=== PATIENT | female | born 1945 | race Caucasian/White ===

== ENCOUNTER 2016-08-09 08:13 | Outpatient (CLI) | payer OTHER | END 2016-08-09 18:07 | disposition home or self-care (01) | LOC: SMA 08:13 | PROVIDERS: ATTEND Family Medicine | DX: Z12.31 Encounter for screening mammogram for malignant neoplasm of breast (principal) | CPT/HCPCS: 77067; G0202 ==

== ENCOUNTER 2017-08-11 09:48 | Outpatient (CLI) | payer MEDICARE, OTHER | END 2017-08-11 18:39 | disposition home or self-care (01) | LOC: SMA 09:48 | DX: Z12.31 Encounter for screening mammogram for malignant neoplasm of breast (principal) | CPT/HCPCS: 77067 ==

== ENCOUNTER 2018-08-15 09:39 | Outpatient (CLI) | payer OTHER | END 2018-08-15 20:29 | disposition home or self-care (01) | LOC: SMA 09:39 | PROVIDERS: ATTEND Family Medicine | DX: Z12.31 Encounter for screening mammogram for malignant neoplasm of breast (principal) | CPT/HCPCS: 77067 ==